=== PATIENT | female | born 1990 | race Caucasian/White ===

== ENCOUNTER 2021-10-08 18:55 | Emergency (ER) | payer SELFPAY ==
[2021-10-08 19:43] LABS: HEMOGLOBIN 13.6 gm/dl (12.3-15.3); RED BLOOD COUNT 4.48 M/UL (4.00-5.10); WHITE BLOOD COUNT 20.1 K/UL (4.5-11.0)
[2021-10-08 20:09] LABS: BUN/CREATININE RATIO 10 (0-10)
[2021-10-08] MEDS ORDERED: HYDROCODON-ACE1 EAC4 PO (22:30)
[2021-10-08] MEDS ORDERED: OMNICEF 300 MG300 MG PO (22:31)
== END 2021-10-08 22:50 | disposition home or self-care (01) ==
LOC: ER1 18:55
PROVIDERS: Physician Assistant Medical
DX: S20.212A Contusion of left front wall of thorax, initial encounter (principal); N39.0 Urinary tract infection, site not specified; F17.200 Nicotine dependence, unspecified, uncomplicated; V86.59XA Driver of other special all-terrain or other off-road motor vehicle injured in nontraffic accident, initial encounter
CPT/HCPCS: 70450; 71045; 71260; 72125; 72128; 72131; 80053; 81001; 82550; 82553; 84484; 85025; 90471; 90715; 93005; 96374; 96375; 99284; J0696; J1885; J7040; Q9967